=== PATIENT | female | born 1985 | race Caucasian/White ===

== ENCOUNTER 2018-04-21 13:09 | Emergency (ER) | payer OTHER ==
--- NOTE | 2018-04-21 13:44 | ED Physician Documentation ---
PD HPI NVD - Stated complaint Stated Complaint: NAUSEA/VOMITING - Chief complaint Chief Complaint: General - History obtained from History obtained from: Patient - History of Present Illness Timing - onset: How many days ago (The patient has had right flank pain for the last 4-5 days and was seen in the clinic with the trace of blood in the urine. She was treated for possible early UTI with Cipro ibuprofen and hydrocodone. There is consideration of a kidney stone as well. She is continue with the flank pain and is now had some nausea and vomiting the past day and a half. She did not taken any hydrocodone since . She is wondering if the Cipro is making her nauseous. She denies any fever or chills. She has not had any gross hematuria nor dysuria.) Timing - duration: Days (5 days of flank pain and 2 days of vomiting.) Timing - details: Gradual onset, Still present Associated symptoms: Abdominal pain (right flank to RLQ.). No: Fever Contributing factors: Recent antibiotics (cipro for the past 3 1/2 days.). No: Sick contact, Bad food Improved by: No: Eating, Vomiting Worsened by: No: Eating, Moving, Breathing, Palpation Similar symptoms before: Has not had sx before Recently seen: Clinic Review of Systems Constitutional: denies: Fever, Chills, Myalgias Nose: denies: Rhinorrhea / runny nose Throat: denies: Sore throat Respiratory: denies: Cough : denies: Dysuria, Frequency, Discharge Skin: denies: Rash, Lesions Neurologic: denies: Generalized weakness, Focal weakness, Numbness, Near syncope PD PAST MEDICAL HISTORY - Past Medical History Cardiovascular: None : None Derm: Other (shingles on her right leg at times in the past. ) - Present Medications Home Medications: Ambulatory Orders Medication Instructions Recorded Confirmed Ciprofloxacin HCl [Cipro] 500 mg PO 04/21/18 Ondansetron Odt [Zofran] 4 mg TL Q6H PRN #15 tablet 04/21/18 - Allergies Allergies/Adverse Reactions: Allergies Allergy/AdvReac Type Severity Reaction Status Date / Time codeine Allergy Unknown Verified 04/21/18 13:22 duloxetine [From Cymbalta] Allergy Unknown Verified 04/21/18 13:22 Penicillins Allergy Unknown Verified 04/21/18 13:22 Sulfa (Sulfonamide Allergy Unknown Verified 04/21/18 13:22 Antibiotics) Tetracyclines Allergy Unknown Verified 04/21/18 13:22 vancomycin Allergy Unknown Verified 04/21/18 13:22 PD ED PE NORMAL - Vitals Vital signs reviewed: Yes - General General: Alert and oriented X 3, No acute distress, Well developed/nourished - Cardiac Cardiac: RRR, No murmur - Respiratory Respiratory: Clear bilaterally - Abdomen Abdomen: Normal bowel sounds, Soft, Non tender, Non distended, No organomegaly - Female Female : Deferred - Rectal Rectal: Deferred - Back Back: No spinal TTP, Other (some right CVA tenderness to percussion. ) - Derm Derm: Normal color, Warm and dry, No rash - Extremities Extremities: No deformity, Normal ROM s pain Results - Vitals Vitals: Vital Signs - 24 hr 04/21/18 04/21/18 13:23 15:07 Temperature 36.8 C 36.4 C L Heart Rate 80 78 Respiratory 16 18 Rate Blood Pressure 127/82 H 96/72 O2 Saturation 98 100 Oxygen O2 Source Room air - Labs Labs: Laboratory Tests 04/21/18 14:21 Urine Color YELLOW Urine Clarity CLOUDY Urine pH 5.5 Ur Specific [place] >=1.030 H Urine Protein NEGATIVE Urine Glucose (UA) NEGATIVE Urine Ketones NEGATIVE Urine Occult Blood TRACE-LYSE Urine Nitrite NEGATIVE Urine Bilirubin NEGATIVE Urine Urobilinogen 0.2 (NORMAL) Ur Leukocyte Esterase NEGATIVE Urine RBC 0-5 Urine WBC 0-3 Ur Squamous Epith Cells MANY Squamous H Urine Bacteria Moderate H Urine Mucus Few Strands Ur Microscopic Review INDICATED Urine Culture Comments NOT INDICATED - Rads (name of study) KUB CT Radiology: Prelim report reviewed (no stones, normal kidney size. No acute process) PD MEDICAL DECISION MAKING - Sepsis Event Vital Signs: Vital Signs - 24 hr 04/21/18 04/21/18 13:23 15:07 Temperature 36.8 C 36.4 C L Heart Rate 80 78 Respiratory 16 18 Rate Blood Pressure 127/82 H 96/72 O2 Saturation 98 100 Oxygen O2 Source Room air Departure - Departure Disposition: 01 Home, Self Care Clinical Impression: Flank pain, acute Condition: Stable Record reviewed to determine appropriate education?: Yes Instructions: ED Flank Pain Uncertain Cause Follow-Up: WILMER AGUIRRE [Primary Care Provider] - Prescriptions: Ondansetron Odt [Zofran] 4 mg TL Q6H PRN #15 tablet PRN Reason: Nausea / Vomiting Comments: Your CT scan did not show any signs of swelling of the kidney to suggest infection and there is no stones. There is no other acute abnormality seen to cause her explain the pain. At this point I would continue the ibuprofen and add Tylenol or hydrocodone that you have previously been prescribed. I would stop the Cipro as this is likely causing the vomiting and use ondansetron if needed for nausea. Follow-up with your primary if not better in the next couple of days.
[2018-04-21] MEDS ORDERED: ONDANSETRON ODT 4 MG TABLET TL STA (14:10)
[2018-04-21 14:26] LABS: BILIRUBIN,URINE NEGATIVE (NEGATIVE); GLUCOSE, URINE (UA) NEGATIVE (NEGATIVE); KETONES,URINE (UA) NEGATIVE (NEGATIVE); LEUKOCYTE ESTERASE, URINE NEGATIVE (NEGATIVE); NITRITE,URINE NEGATIVE (NEGATIVE); OCCULT BLOOD,URINE TRACE-LYSE (NEGATIVE); PH,URINE 5.5 PH (5.0-7.5); PROTEIN,URINE NEGATIVE (NEGATIVE); UROBILINOGEN,URINE 0.2 (NORMAL) E.U./dL (NORMAL)
[2018-04-21 14:28] LABS: CLARITY,URINE CLOUDY (CLEAR)
[2018-04-21 14:35] LABS: BACTERIA,URINE Moderate /HPF (None Seen); MUCUS,URINE Few Strands; RBC,URINE 0-5 /HPF (0-5); SQUAMOUS EPITHELIAL CELL,UR MANY Squamous (<= Few)
--- NOTE | 2018-04-21 15:02 | CT Report ---
Reason: right flank pain; hematuria for 5 days Procedure Date: 04/21/2018 Accession Number: [id number] / [id number] Procedure: CT - KUB CPT Code: FULL RESULT: EXAM: CT ABDOMEN AND PELVIS (CT KUB) EXAM DATE: 04/21/2018 02:33 PM. CLINICAL HISTORY: Right flank pain with hematuria. COMPARISONS: None. TECHNIQUE: Routine axial helical CT imaging was performed through the abdomen and pelvis without IV contrast. Reconstructions: Coronal and sagittal. In accordance with CT protocol optimization, one or more of the following dose reduction techniques were utilized for this exam: automated exposure control, adjustment of mA and/or KV based on patient size, or use of iterative reconstructive technique. FINDINGS: Lung Bases: Unremarkable. Right Kidney/Ureter: No stones, hydronephrosis, or hydroureter. No perinephric fat stranding. Left Kidney/Ureter: No stones, hydronephrosis, or hydroureter. No perinephric fat stranding. Other Solid Organs: Noncontrast images of the solid organs are grossly unremarkable. Gallbladder/Bile Ducts: Unremarkable. Peritoneal Cavity: No free fluid, free air or sophy adenopathy. Bowel is grossly unremarkable. Appendix is not conclusively identified. Pelvic Organs: No bladder stones or wall thickening. Noncontrast images of the visualized pelvic organs are unremarkable. Vasculature: Unremarkable. Other: None. IMPRESSION: Grossly unremarkable exam. Appendix not conclusively identified. RADIA
[2018-04-21 15:08] VITALS: BP 96/72
== END 2018-04-21 15:21 | disposition home or self-care (01) ==
LOC: ED 13:09
DX: R10.9 Unspecified abdominal pain (principal)
CPT/HCPCS: 74176; 81001; 99283; Q0162; 81003; 87086

== ENCOUNTER 2018-09-21 15:51 | Outpatient (CLI) | payer OTHER ==
--- NOTE | 2018-09-22 14:51 | MRI Report ---
Reason: LOW BACK PAIN Procedure Date: 09/21/2018 Accession Number: [id number] / [id number] Procedure: MRI - Lumbar Spine W/O CPT Code: FULL RESULT: EXAM: MRI LUMBAR SPINE WITHOUT CONTRAST EXAM DATE: 09/21/2018 04:24 PM. CLINICAL HISTORY: LOW BACK PAIN. COMPARISON: Prior CT scan abdomen pelvis study 04/21/2018. TECHNIQUE: Multiplanar, multisequence T1-weighted and fluid-sensitive sequences of the lumbar spine from T12 to S1 without contrast. Other: None. Findings: Relevant images are indicated (image number, series number). Again seen 5 [id number] lumbar vertebra. Conus terminates at L1, no abnormal lumbar cord signal. There are no suspicious marrow lesions. Partly visualized bilateral sacroiliac joints are unremarkable. No lumbar paraspinal mass or collection. Partly visualized kidneys demonstrate no obstructive uropathy. Surrounding skeletal muscle is unremarkable. Chronic multilevel posterior facet bony hypertrophic changes are present. Partly seen at T8-T9, to the L2-L3 level: No significant disk degenerative change, no canal stenosis or neural foramina narrowing at these levels. Minimal anterior superior endplate edema at T11, no fracture line seen suggestive of minimal corner endplate degenerative change. L3-L4: Mild disk desiccation, no canal stenosis. Mild/moderate posterior facet degenerative change with minimal bilateral neural foramina narrowing. L4-L5: No significant disk degenerative change, canal stenosis. Moderate posterior facet degenerative change with no significant bilateral neural foramina narrowing. L5-S1: Mild disk desiccation, posterior right parasagittal prominent disk osteophyte bulge, no significant canal stenosis. Mild/moderate posterior facet degenerative change with minimal left, no significant right neural foraminal narrowing. There may be contact with traversing right S1 nerve root. Remaining upper cervical canal negative. Impressions: 1. Again seen are 5 [id number] lumbar vertebra, multilevel lumbar spondylosis without abnormal lumbar cord signal, pertinent degenerative levels below. 2. L5-S1: Right posterior parasagittal prominent disk osteophyte bulge, may contribute a traversing right S1 radiculopathy. 3. Milder or no significant degenerative changes of the remaining lower thoracic, lumbar spine levels as detailed. Comment: The following findings are so common in adults without low back pain that while we report their presence, they must be interpreted with caution and in the context of the clinical situation. (Reference Alison et al, Spine 2001) Prevalence of findings in patients without low back pain: Disk degeneration (any evidence): 92% Disk desiccation/T2 signal loss: 83% Disk height loss: 56% Disk bulge: 64% Disk protrusion: 32% Annular tear/high intensity zone: 38% RADIA
== END 2018-09-21 15:52 | disposition home or self-care (01) ==
LOC: DI 15:51
PROVIDERS: ATTEND Physician Assistant
DX: M47.816 Spondylosis without myelopathy or radiculopathy, lumbar region (principal); M25.78 Osteophyte, vertebrae
CPT/HCPCS: 72148

== ENCOUNTER 2018-11-23 10:32 | Emergency (ER) | payer OTHER ==
[2018-11-23 10:47] VITALS: BP 118/74
[2018-11-23] MEDS ORDERED: predniSONE 20 MG TABLET PO STA (12:09)
--- NOTE | 2018-11-23 12:12 | ED Physician Documentation ---
History of Present Illness - Stated complaint Stated Complaint: SOA - Chief complaint Chief Complaint: Resp - History obtained from History obtained from: Patient - History of Present Illness Timing: Yesterday (This is a 32-year-old woman with history of mild intermittent asthma who presents with an exacerbation of same. She is having difficulty breathing since mowing the lawn yesterday. There is no URI symptoms with it, no runny nose or sore throat. No fevers. She has a nonproductive cough and chest tightness. She is taking her inhalers and several nebs with modest but incomplete relief. No fevers.) Review of Systems Constitutional: denies: Fever, Chills Nose: denies: Rhinorrhea / runny nose Throat: denies: Sore throat Cardiac: denies: Chest pain / pressure, Palpitations PD PAST MEDICAL HISTORY - Past Medical History Cardiovascular: None Respiratory: Asthma : None Psych: Anxiety Musculoskeletal: Fibromyalgia, Rheumatoid arthritis, Other Derm: Other - Past Surgical History /PSYCHIC READER: Hysterectomy, Oophrectomy HEENT: Rhinoplasty - Present Medications Home Medications: Ambulatory Orders Medication Instructions Recorded Confirmed Albuterol 1 neb NEB PRN 11/23/18 predniSONE [Deltasone] 60 mg PO DAILY 5 Days tablet 11/23/18 - Allergies Allergies/Adverse Reactions: Allergies Allergy/AdvReac Type Severity Reaction Status Date / Time codeine Allergy Unknown Verified 11/23/18 10:43 duloxetine [From Cymbalta] Allergy Unknown Verified 11/23/18 10:43 Penicillins Allergy Unknown Verified 11/23/18 10:43 Sulfa (Sulfonamide Allergy Unknown Verified 11/23/18 10:43 Antibiotics) Tetracyclines Allergy Unknown Verified 11/23/18 10:43 vancomycin Allergy Unknown Verified 11/23/18 10:43 - Social History Does the pt smoke?: No Smoking Status: Never smoker Does the pt drink ETOH?: No Does the pt have substance abuse?: No - Immunizations Immunizations are current?: Yes PD ED PE NORMAL - Vitals Vital signs reviewed: Yes - General General: Alert and oriented X 3, No acute distress - HEENT HEENT: PERRL, EOMI - Respiratory Respiratory: No respiratory distress, Other (Speaking in full sentences without any labored breathing, excellent air motion with minimal expiratory wheezes. No focal findings.) - Abdomen Abdomen: Non tender - Extremities Extremities: No edema, No calf tenderness / cord - Neuro Neuro: Alert and oriented X 3, Normal speech Results - Vitals Vitals: Vital Signs - 24 hr 11/23/18 10:43 Temperature 36.4 C L Heart Rate 80 Respiratory 16 Rate Blood Pressure 118/74 O2 Saturation 99 Oxygen O2 Source Room air Departure - Departure Disposition: Home, Self Care Clinical Impression: Asthma Qualifiers: Asthma severity: mild Asthma persistence: intermittent Asthma complication type: with acute exacerbation Qualified Code(s): J45.21 - Mild intermittent asthma with (acute) exacerbation Condition: Good Record reviewed to determine appropriate education?: Yes Instructions: Asthma Dc Prescriptions: predniSONE [Deltasone] 60 mg PO DAILY 5 Days tablet Comments: Call your doctor to arrange a follow-up appointment, make the next available appointment. In the interim, return anytime if worse or if new symptoms develop.
== END 2018-11-23 12:33 | disposition home or self-care (01) ==
LOC: ED 10:32
DX: J45.21 Mild intermittent asthma with (acute) exacerbation (principal)
CPT/HCPCS: 99283; J7512

== ENCOUNTER 2019-07-10 07:00 | Outpatient (CLI) | payer OTHER ==
[2019-07-10 12:56] LABS: BASOPHILS % (AUTO) 0.6 %; EOSINOPHILS # (AUTO) 0.1 10^3/uL (0.0-0.7); EOSINOPHILS % (AUTO) 2.1 %; HGB - HEMOGLOBIN 12.2 g/dL (12.0-16.0); LYMPHOCYTES # (AUTO) 1.7 10^3/uL (1.5-3.5); LYMPHOCYTES % (AUTO) 33.5 %; MEAN CORPUSCULAR HGB CONC 32.7 g/dL (32.0-36.0); MEAN CORPUSCULAR VOLUME 91.6 fL (81.0-99.0); MEAN PLATELET VOLUME 12.7 fL (7.9-10.8); MONOCYTES # (AUTO) 0.3 10^3/uL (0.0-1.0); MONOCYTES % (AUTO) 5.6 %; PLT - PLATELET COUNT 203 10^3/uL (130-450); RED BLOOD COUNT 4.07 10^6/uL (4.20-5.40); RED CELL DISTRIBUTION WIDTH 11.9 % (12.0-15.0); WHITE BLOOD COUNT 5.2 x10^3/uL (4.8-10.8)
[2019-07-10 13:20] LABS: ALBUMIN 3.7 g/dL (3.2-5.5); ALKALINE PHOSPHATASE 55 IU/L (42-121); ALT ALANINE AMINOTRANSFERASE 23 IU/L (10-60); AST ASPARTATE AMINOTRANSFERASE 22 IU/L (10-42); BILIRUBIN,TOTAL 0.6 mg/dL (0.2-1.0); BUN - BLOOD UREA NITROGEN 11 mg/dL (6-20); CALCIUM 9.2 mg/dL (8.5-10.3); CARBON DIOXIDE - CO2 27 mmol/L (21-32); CHLORIDE 106 mmol/L (101-111); CHOL/HDL RATIO 2.7 (<4.4); CHOLESTEROL 169 mg/dL; CREATININE 0.7 mg/dL (0.4-1.0); GFR - MDRD 97 (>89); GLUCOSE 100 mg/dL (70-100); HDL CHOLESTEROL 62 mg/dL; LDL CHOLESTEROL,CALCULATED 95 mg/dL; LDL/HDL RATIO 1.5 (<4.4); SODIUM 139 mmol/L (135-145); TOTAL PROTEIN 7.5 g/dL (6.7-8.2); VLDL CHOLESTEROL 12 mg/dL
[2019-07-10 14:10] LABS: HB2 TOTAL 12.3 g/dL; HEMOGLOBIN A1C 0.44 g/dL; HEMOGLOBIN A1C % 5.4 % (4.6-6.2)
== END 2019-07-10 23:59 | disposition home or self-care (01) ==
LOC: MERGE 07:00 → LAB.N 07:00
PROVIDERS: ATTEND Family Medicine
DX: Z00.00 Encounter for general adult medical examination without abnormal findings (principal)
CPT/HCPCS: 36415; 80053; 80061; 83036; 83721; 84443; 85025

== ENCOUNTER 2019-12-24 09:19 | Outpatient (CLI) | payer OTHER ==
--- NOTE | 2019-12-24 12:25 | MRI Report ---
Reason: PAIN IN LT KNEE Procedure Date: 12/24/2019 Accession Number: [id number] / [id number] Procedure: MRI - Knee LT W/O CPT Code: Final Report FULL RESULT: EXAM: LEFT KNEE MRI WITHOUT CONTRAST EXAM DATE: 12/24/2019 10:16 AM. CLINICAL HISTORY: Pain in left knee. COMPARISON: None. TECHNIQUE: Multiplanar, multisequence T1-weighted and fluid-sensitive sequences of the knee without contrast. Other: None. FINDINGS: Bones: No fractures or subluxations. No marrow edema. No bone lesions. Articular Cartilage: Unremarkable. Medial Meniscus: The medial meniscus is intact. Lateral Meniscus: The lateral meniscus is intact. Cruciate Ligaments: The anterior and posterior cruciate ligaments are intact. Collateral Ligaments: The medial collateral and lateral collateral ligamentous structures are intact. Tendons: The quadriceps, patellar, semimembranosus, and popliteus tendons are unremarkable. Musculature: No edema or fatty atrophy. Other: No effusion. No popliteal cyst. No loose bodies. The medial and lateral retinacula are intact. The subcutaneous tissues and fat pads are unremarkable. IMPRESSION: Negative for meniscus tear or internal derangement. RADIA
== END 2019-12-24 09:20 | disposition home or self-care (01) ==
LOC: DI 09:19
PROVIDERS: ATTEND Physician Assistant
DX: M25.562 Pain in left knee (principal)